=== PATIENT | male | born 1995 | race Caucasian/White ===

== ENCOUNTER 2018-04-22 10:10 | Emergency (ER) | payer BC, OTHER ==
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
[2018-04-22] MEDS ORDERED: 0.9 % SODIUM CHLORIDE 1,000 ML BAG IV ONE ×2 (10:31→12:02)
[2018-04-22] MEDS ORDERED: DICYCLOMINE HCL 10 MG/ML AMPUL IM ONE (10:31)
[2018-04-22] MEDS ORDERED: ONDANSETRON HCL IV 4 MG/2 ML VIAL IV ONE (10:31)
[2018-04-22 10:56] LABS: HEMATOCRIT 42.6 % (42.0-52.0); HEMOGLOBIN 14.6 gm/dl (14.0-18.0); MEAN CELL VOLUME 83.7 fl (81-97); MEAN CORPUSCULAR HEMOGLOBIN 28.7 pg (27-33); MEAN CORPUSCULAR HGB CONC 34.3 g/dl (32-36); MEAN PLATELET VOLUME 8.6 fl (7.4-10.4); PLATELET COUNT 410 K/uL (130-400); RED BLOOD COUNT 5.09 M/uL (4.40-5.70); RED CELL DISTRIBUTION WIDTH 13.1 % (11.5-14.5); WHITE BLOOD COUNT W/O DIFF 7.9 K/uL (4.2-12.2)
[2018-04-22 11:08] LABS: BLOOD UREA NITROGEN 16 mg/dL (6-20); CREATININE 0.7 mg/dL (0.7-1.2); EST GLOMERULAR FILTRATION RATE > 60 mL/min
[2018-04-22 11:09] LABS: TOTAL PROTEIN 7.5 g/dL (6.6-8.7)
[2018-04-22 11:11] LABS: GLUCOSE,RANDOM 111 mg/dL (74-109)
[2018-04-22 11:13] LABS: ALT/SGPT 7 U/L (<41)
[2018-04-22 11:14] LABS: ALBUMIN 3.9 g/dL (4.0-5.0); ALKALINE PHOSPHATASE 73 U/L (40-129); AST/SGOT 14 U/L (10.0-50.0); BILIRUBIN,DIRECT < 0.2 mg/dL (0-0.3); LIPASE 35 U/L (13-60)
[2018-04-22 11:45] LABS: URINE APPEARANCE CLEAR; URINE BILIRUBIN NEGATIVE (NEGATIVE); URINE BLOOD TRACE-I (NEGATIVE); URINE COLOR YELLOW; URINE GLUCOSE (UA) NEGATIVE (NEGATIVE); URINE KETONE NEGATIVE (NEGATIVE); URINE LEUKOCYTE ESTERASE NEGATIVE (NEGATIVE); URINE NITRITE NEGATIVE (NEGATIVE); URINE PROTEIN NEGATIVE (NEGATIVE)
[2018-04-22 11:55] LABS: URINE EPITHELIAL CELLS 0 - 2 (FEW); URINE MUCUS LIGHT; URINE WBC 0 - 2 (0-2/hpf)
--- NOTE | 2018-04-24 14:50 | CT SCAN REPORT ---
EXAM: EMERGENCY CT OF THE ABDOMEN AND PELVIS WITHOUT CONTRAST HISTORY: LEFT SIDED ABDOMINAL PAIN EXTENDING INTO LEFT FLANK. TECHNIQUE: Axial CT scan of the abdomen and pelvis was performed without oral or IV contrast. Comparison: CT of the abdomen and pelvis 05/06/14. FINDINGS: No calcified gallstones are seen within the gallbladder. There is at least one tiny calcification in the lower pole of the right kidney consistent with a tiny nonobstructing calculus. None are definitely seen on the left. There is no hydronephrosis or hydroureter seen on either side. As such it is somewhat difficult to follow the entire course of both ureters in their nondilated state throughout the retroperitoneum and pelvis, however, no definite ureteral calculus seen on either side and no bladder calculus evident. A small amount of metallic density in the right lower quadrant is new from the prior study and is probably related to prior appendectomy performed in the interval. Evaluation of the bowel and viscera is extremely limited without oral or IV contrast today. Given this limitation, no definite hepatic, splenic, adrenal, pancreatic, or renal mass identified. No free intraperitoneal air or free intraperitoneal fluid identified. Some facet joint arthropathy in the lower lumbar spine. IMPRESSION: 1. POSTOP APPENDECTOMY. 2. SINGLE TINY NONOBSTRUCTING CALCULUS LOWER POLE RIGHT KIDNEY. NO DEFINITE HYDRONEPHROSIS OR URETERAL CALCULUS SEEN ON EITHER SIDE. 3. SOME MILD PROSTATE CALCIFICATION. 4. FACET JOINT ARTHROPATHY IN THE LOWER LUMBAR SPINE. JOB NUMBER: [id number] MTDD
== END 2018-04-22 13:02 | disposition home or self-care (01) ==
LOC: ER 10:10
DX: R10.32 Left lower quadrant pain (principal); J06.9 Acute upper respiratory infection, unspecified; R53.83 Other fatigue; R05 Cough; R11.2 Nausea with vomiting, unspecified; F17.210 Nicotine dependence, cigarettes, uncomplicated
CPT/HCPCS: 74176; 80048; 80076; 81001; 83690; 85027; 96361; 96372; 96374; 99284; J2405; J7030